=== PATIENT | male | born 1975 ===

== ENCOUNTER 2024-09-30 10:03 | Outpatient (REF) | payer BC, SELFPAY ==
[2024-10-01 10:02] LABS: BUN 11 mg/dL (7-18); CREATININE 1.2 mg/dL (0.70-1.30); Calcium 9.5 mg/dL (8.5-10.1); Chloride 101 mmol/L (98-107); Estimated GFR 75.06 (mL/min/1.73m2); Glucose 101 mg/dL (74-106); Potassium 3.8 mmol/L (3.5-5.1); Sodium 144 mmol/L (136-145)
== END 2024-09-30 10:04 | disposition home or self-care (01) ==
LOC: LBN 10:03
PROVIDERS: Visit Provider Physician Assistant
DX: I10 Essential (primary) hypertension (principal)
CPT/HCPCS: 80048

== ENCOUNTER 2025-02-04 20:18 | Outpatient (REF) | payer BC, SELFPAY ==
[2025-02-04 15:56] LABS: Hemoglobin A1C 5.6 % (<5.7)
[2025-02-04 16:28] LABS: ALT 44 U/L (16-63); AST 22 U/L (15-37); Albumin 4.5 g/dL (3.4-5.0); Alkaline Phosphatase 110 U/L (46-116); Anion Gap 7.1 mmol/L (3-11); BUN 15 mg/dL (7-18); Bilirubin, Total 0.9 mg/dL (0.2-1.0); CO2 31.9 mmol/L (21.0-32.0); CREATININE 1.1 mg/dL (0.70-1.30); Chloride 102 mmol/L (98-107); Estimated GFR 83.32 (mL/min/1.73m2); Glucose 94 mg/dL (74-106); Potassium 3.7 mmol/L (3.5-5.1); Sodium 141 mmol/L (136-145)
== END 2025-02-04 20:19 | disposition home or self-care (01) ==
LOC: NCHCN 20:18
PROVIDERS: Visit Provider Student in an Organized Health Care Education/Training Program
DX: I10 Essential (primary) hypertension (principal); R73.03 Prediabetes
CPT/HCPCS: 80053; 83036